=== PATIENT | female | born 1990 | race American Indian/Alaskan Native ===

== ENCOUNTER 2019-08-24 07:51 | Day surgery (SDC) | payer OTHER ==
[~2019-08-24 07:51] MED LIST: SODIUM CHLORIDE 0.9% 1000 ML 1,000 ML IV SCH
[2019-08-24] MEDS ORDERED: LIDOCAINE MPF (2%) 20 MG/1 ML VIAL 5 ML ONE (08:30)
--- NOTE | 2019-08-24 08:53 | Anesthesia Consultation ---
Anesthesia Consult and Med Hx Date of service: 08/24/19 - Airway Anesthetic Teeth Evaluation: Good ROM Head & Neck: Adequate Mental/Hyoid Distance: Adequate Mallampati Class: Class II Intubation Access Assessment: Probably Good - Pre-Operative Health Status ASA Pre-Surgery Classification: ASA3 Proposed Anesthetic Plan: MAC - Pulmonary Hx Smoking: No Hx Asthma: No Hx Respiratory Symptoms: No SOB: No COPD: No Home Oxygen Therapy: No Hx Pneumonia: No Hx Sleep Apnea: Yes - Cardiovascular System Hx Hypertension: Yes Hx Coronary Artery Disease: No Hx Heart Attack/AMI: No Hx Angina: No Hx Percutaneous Transluminal Coronary Angioplasty (PTCA): No Hx Cardia Arrhythmia: No Hx Pacemaker: No Hx Internal Defibrillator: No Hx Valvular Heart Disease: No Hx Heart Murmur: No Hx Peripheral Vascular Disease: No - Central Nervous System Hx Neuromuscular Disorder: No Hx Seizures: No CVA: No Hx Back Pain: No Hx Psychiatric Problems: Yes (PTSD) - Gastrointestinal Hx Ulcer: No Hx Gastroesophageal Reflux Disease: Yes - Endocrine Hx Renal Disease: No Hx End Stage Renal Disease: No Hx Cirrhosis: No Hx Liver Disease: No Hx Insulin Dependent Diabetes: No Hx Non-Insulin Dependent Diabetes: No Hx Thyroid Disease: No Hx Hypothyroidism: No Hx Hyperthyroidism: No - Hematic Hx Anemia: No - Other Systems Hx Alcohol Use: Yes (occ.) Hx Substance Use: No Hx Cancer: No Hx Obesity: No
--- NOTE | 2019-08-24 08:54 | Anesthesia Day of Surgery ---
Anesthesia Day of Surgery - Day of Surgery Patient Examined: Yes Patient H&P Reviewed: Yes Patient is NPO: Yes Beta Blockers: No
--- NOTE | 2019-08-24 09:01 | History and Physical Report ---
HISTORY OF PRESENT ILLNESS: The patient is a 28-year-old -[place] Citizen female who has lately been having GERD symptoms, abdominal pain and cramping. She gives a family history of Crohn's disease and has come for evaluation for her GERD symptoms as well as abdominal pain and possible associated colitis. ALLERGIES: She has an underlying history of hypertension, has a history of allergy to LISINOPRIL and has LACTOSE intolerance. SOCIAL HISTORY: Denies history of smoking, rarely drinks alcohol, no cardiac issues. No flu shots. MEDICATIONS: Include Protonix, diclofenac and cholecalciferol. PHYSICAL EXAMINATION: GENERAL: She is afebrile. VITAL SIGNS: Blood pressure 135/78, pulse is 77, height is 5 feet 7 inches, weight is 209. NECK: Shows no JVD. LUNGS: Clear to auscultation. CARDIOVASCULAR: Normal. ABDOMEN: Soft with some mid abdominal tenderness and epigastric tenderness. EXTREMITIES: No pedal edema. NEUROLOGIC: She is alert and oriented. ASSESSMENT: Abdominal pain, colitis, family history of Crohn's disease, gastroesophageal reflux disease, and esophagitis, hypertension. PLAN: To do an EGD and a colonoscopy at [facility] on 08/24/2019. The patient has used the [facility]. JOB# [id number] ISAI/ISHAAN
[2019-08-24] MEDS ORDERED: PROPOFOL 200 MG/20 ML VIAL IV ONE ×4 (09:07→09:28)
--- NOTE | 2019-08-24 09:48 | Procedure Note ---
Date of procedure: 08/24/19 Pre-op diagnosis: GERD/ Abdominal Pain/Colitis/F/H/O Crohn's Disease Post-op diagnosis: other (Mild to Moderate Erosive Esophagitis/Gastritis/Mild to Moderate,Hiatal hernia/R/O Microscopic Colitis/R/O Ileitis/Minor,Internal Hemorrhoids) Procedure: EGD with Biopsy and Colonoscopy with Biopsy Anesthesia: [facility] Surgeon: ERIN CHAN Estimated blood loss: minimal Pathology: list Specimen disposition: to lab Condition: stable Disposition: same day (Treat PPI,Baclofen,prn Bentyl and encourage OTC Probiotic. Avoid aspirin and NSAID for 4 days; otherwise resume home medication. Follow up in to 2 weeks ([phone]).)
--- NOTE | 2019-08-24 09:59 | Operative Report ---
PROCEDURE: Esophagogastroduodenoscopy with biopsy. INDICATIONS: A 28-year-old -[place] female who has a family history of Crohn's disease. She has been having abdominal pain and GERD symptoms. EGD was done to assess for any significant upper GI pathology. DESCRIPTION OF PROCEDURE: Procedure was done after getting informed consent. With MAC anesthesia, instrument was passed through the hypopharynx into the esophagus, which showed moderate erosive esophagitis. Stomach showed gastritis. Biopsy was done from the gastric antrum, gastric body and angular incisura, a mild to moderate hiatal hernia was also noted on the retroverted view. Biopsy was additionally done from the distal esophagus to assess for the severity of the erosive esophagitis. The pylorus is patent. The duodenum in the first and second portion appeared normal. There was minimal bleeding from the biopsy sites and no complications associated with the procedure. ASSESSMENT: Gastroesophageal reflux disease symptoms, moderate erosive esophagitis, gastritis, [id number] hiatal hernia, patent pylorus. No peptic ulcer disease noted. There was minimal bleeding from the biopsy sites. No complications associated with the procedure. PLAN: Plan is to treat the patient with PPI and baclofen. Have the patient avoid aspirin and aspirin-related products for the next few days. A colonoscopy will be done for further assessment of the abdominal pain and to see whether the patient has any associated colitis. The procedure was done in the GI lab with assistance of the GI lab team, which included nurse, Chanda and the motorcycle service technician and with assistance of anesthesia. JOB# [id number] ISAI/ISHAAN
--- NOTE | 2019-08-24 10:08 | Operative Report ---
PROCEDURE: Colonoscopy with biopsy. INDICATIONS: A 28-year-old -[place] female who has been having abdominal pain, GERD symptoms and does have a family history of Crohn's disease and colitis. EGD had shown presence of [id number] hiatal hernia, moderate erosive esophagitis and gastritis, but no peptic ulcer disease. Colonoscopy was done to make sure there was not any significant lower GI pathology present. Initial rectal exam was unremarkable. Instrument was passed through the rectum onto the cecum, which was identified with ileocecal valve and the appendiceal orifice. Visualization was fair to good. Terminal ileum was intubated showed normal mucosa. Biopsy was done to rule out for possible ileitis. Cecum, ascending colon, transverse colon, descending colon, and sigmoid likewise showed normal mucosa. There was no endoscopic evidence of colitis, diverticular disease or polyps. Random biopsies were done to rule out microscopic colitis and the rectum showed minor internal hemorrhoid on the retroverted view. ASSESSMENT: Abdominal pain, rule out microscopic colitis, rule out ileitis, minor internal hemorrhoid. There is minimal bleeding associated with the procedure. No complications associated with the procedure. PLAN: To treat the patient with PPI and baclofen because of the EGD findings of moderate erosive esophagitis and gastritis. The patient will be also advised about lifestyle changes because of the presence of acva-xq-mpsbigel hiatal hernia and also will be treated with Bentyl on a p.r.n. basis for abdominal pain and encouraged to take probiotics. The patient will also be advised to avoid aspirin and aspirin-related products for the next 4-5 days and follow up in the office in 1-2 weeks' time. The procedure was done in the GI lab with assistance of the GI lab team, which included Chanda DAVID including the forest technology professor and assistance from anesthesia. JOB# [id number] ISAI/ISHAAN
[2019-08-24 10:26] VITALS: BP 128/83
--- NOTE | 2019-08-24 13:36 | Post Anesthesia Evaluation ---
- Post Anesthesia Evaluation Patient Participated: Yes Airway Patent: Yes Stable Respiratory Function: Yes Nausea/Vomiting: No Temp > 96.8F: Yes Pain Manageable: Yes Adequeate Hydration: Yes Anesthesia Complications: No Block Receding Appropriately: Not Applicable Patient on Ventilator: No
== END 2019-08-24 07:52 | disposition home or self-care (01) ==
LOC: GIO 07:51
DX: R10.9 Unspecified abdominal pain (principal); K64.8 Other hemorrhoids; K21.0 Gastro-esophageal reflux disease with esophagitis; K29.70 Gastritis, unspecified, without bleeding; K44.9 Diaphragmatic hernia without obstruction or gangrene; K29.50 Unspecified chronic gastritis without bleeding; K63.89 Other specified diseases of intestine; I10 Essential (primary) hypertension; G47.30 Sleep apnea, unspecified; Z88.8 Allergy status to other drugs, medicaments and biological substances; Z79.899 Other long term (current) drug therapy; Z72.89 Other problems related to lifestyle
CPT/HCPCS: 43239; 45380; 81025; 88305; 88342; J2704; J7030